=== PATIENT | male | born 1965 | race Caucasian/White ===

== ENCOUNTER 2022-01-22 16:24 | Inpatient (IN) ==
[2022-01-22 18:17] LABS: Bilirubin,Urine Negative (Negative); Blood,Urine Negative (Negative); Clarity,Urine Clear (Clear); Color,Urine Light-Yellow (Yellow); Glucose,Urine (UA) Normal (Normal); Ketones,Urine Negative (Negative); Leukocyte Esterase,Urine Negative (Negative); Nitrite,Urine Negative (Negative); Protein,Urine Negative (Neg-Trace); Urobilinogen,Urine Normal (Normal)
[2022-01-22 18:24] LABS: Basophils # 0.1 K/mcL (0.0-0.2); Basophils % 0.6 %; Eosinophils # 0.1 K/mcL (0.0-0.6); Eosinophils % 1.5 %; Hemoglobin 10.5 g/dL (12.9-16.9); Immature Granulocytes % 0.4 % (0-4); Lymphocytes % 25.1 %; Mean Corpuscular HGB Conc 30.9 g/dL (31.6-35.5); Mean Corpuscular Hemoglobin 28.2 pg (28.0-33.3); Mean Corpuscular Volume 91.4 fL (83.0-100.0); Mean Platelet Volume 8.9 fL (9.4-12.4); Monocytes # 0.8 K/mcL (0.0-1.3); Monocytes % 10.3 %; Platelet Count 352 K/mcL (140-400); Red Blood Count 3.72 M/mcL (4.19-5.50); Red Cell Distribution Width 14.8 % (11.5-14.5); Segmented Neutrophils % 62.1 %; White Blood Count 8.1 K/mcL (4.3-11.1)
[2022-01-22 18:28] LABS: Amphetamine Screen,Urine Negative ng/mL (Cutoff=1000); Barbiturate Screen,Urine Negative ng/mL (Cutoff=200); Benzodiazepines Screen,Urine Negative ng/mL (Cutoff=200); Cannabinoid Screen,Urine Negative ng/mL (Cutoff = 50); Cocaine Screen,Urine Negative ng/mL (Cutoff= 300); Opiate Screen,Urine Negative ng/mL (Cutoff=300); Phencyclidine Screen,Urine Negative ng/mL (Cutoff=25)
[2022-01-22 18:44] LABS: Acetaminophen < 10 mcg/mL (10-20); BUN/Creatinine Ratio 19 (6-26); Blood Urea Nitrogen 12 mg/dL (6-20); Calcium 8.9 mg/dL (8.6-10.3); Carbon Dioxide 27 mEq/L (23-29); Chloride 96 mEq/L (98-107); Ethanol < 10 mg/dL (Less than 10); Glucose 96 mg/dL (70-105); Osmolality,Calculated 270 (280-300); Potassium 4.3 mEq/L (3.5-5.1); Salicylate < 2.5 mg/dL (15.0-30.0); Sodium 130 mEq/L (136-145); eGFR For African Americans > 60 (> 60); eGFR For Non-African Americans > 60 (> 60)
[2022-01-22 22:08] LABS: Influenza A PCR Negative (Negative); Influenza B PCR Negative (Negative); Resp. Syncytial Virus PCR Negative (Negative)
[2022-01-22 22:10] LABS: SARS-CoV-2 by PCR (In House) Negative (Negative)
[2022-01-22] MEDS ORDERED: *HR* LORazepam 2 MG/ML VIAL IM PRN (22:35)
[2022-01-22] MEDS ORDERED: Haloperidol Lactate 5 MG/ML VIAL IM PRN (22:35)
[2022-01-22] MEDS ORDERED: *HR* LORazepam 1 MG TABLET PO PRN (22:35)
[2022-01-22] MEDS ORDERED: Ibuprofen 400 MG TABLET PO PRN (22:35)
[2022-01-22] MEDS ORDERED: haloperidoL 5 MG TABLET PO PRN (22:35)
[2022-01-22] MEDS ORDERED: Acetaminophen 325 MG TABLET PO PRN (22:35)
[2022-01-22] MEDS: hydrOXYzine pamoate 25 MG CAPSULE PO PRN (23:59)
[2022-01-22] MEDS: traZODone 50 MG TABLET PO PRN (23:59)
[2022-01-23] MEDS ORDERED: Baclofen 10 MG TABLET PO PRN (14:07)
[2022-01-23] MEDS ORDERED: Ondansetron ODT 4 MG TAB.RAPDIS SL PRN (14:07)
[2022-01-23] MEDS ORDERED: cloNIDine HCL 0.1 MG TABLET PO PRN (14:08)
[2022-01-23] MEDS: *HR* Buprenorphine HCl 8 MG TAB.SUBL SL SCH ×2 (14:56→20:37)
[2022-01-23] MEDS ORDERED: Ibuprofen 800 MG TABLET PO PRN (15:00)
[2022-01-23] MEDS: hydrOXYzine pamoate 25 MG CAPSULE PO PRN (16:19)
[2022-01-23] MEDS: Sulfamethoxazole/Trimeth DS 1 EACH TABLET PO SCH (20:37)
[2022-01-23] MEDS: traZODone 50 MG TABLET PO PRN (20:37)
[2022-01-23] MEDS: tiZANidine 4 MG TABLET PO PRN (20:37)
[2022-01-24] MEDS: *HR* Buprenorphine HCl 8 MG TAB.SUBL SL SCH ×2 (08:41→20:47)
[2022-01-24] MEDS: Sulfamethoxazole/Trimeth DS 1 EACH TABLET PO SCH ×2 (08:41→20:47)
[2022-01-24] MEDS: lisinopriL 20 MG TABLET PO SCH (08:41)
[2022-01-24] MEDS: traZODone 50 MG TABLET PO PRN (20:50)
[2022-01-25] MEDS: *HR* Buprenorphine HCl 8 MG TAB.SUBL SL SCH ×2 (08:36→20:15)
[2022-01-25] MEDS: lisinopriL 20 MG TABLET PO SCH (08:36)
[2022-01-25] MEDS: Sulfamethoxazole/Trimeth DS 1 EACH TABLET PO SCH ×2 (08:37→20:16)
[2022-01-25] MEDS: tiZANidine 4 MG TABLET PO PRN (20:17)
[2022-01-25] MEDS ORDERED: QUEtiapine Fumarate 25 MG TABLET PO SCH (21:00)
[2022-01-26] MEDS: tiZANidine 4 MG TABLET PO PRN (08:47)
[2022-01-26] MEDS: *HR* Buprenorphine HCl 8 MG TAB.SUBL SL SCH (08:48)
[2022-01-26] MEDS: lisinopriL 20 MG TABLET PO SCH (08:48)
[2022-01-26] MEDS: Sulfamethoxazole/Trimeth DS 1 EACH TABLET PO SCH (08:48)
[2022-01-26 09:03] VITALS: BP 142/90; PULSE 90; TEMP 98.2; O2SAT 100
== END 2022-01-26 11:35 | disposition home or self-care (01) | DRG 885 ==
LOC: EMEROOARM 16:24 → 1ANU 20:40
PROVIDERS: ADMIT Psychiatry & Neurology Psychiatry; ATTEND Psychiatry & Neurology Psychiatry